=== PATIENT | male | born 2000 | race Caucasian/White ===

== ENCOUNTER 2023-04-14 09:47 | Outpatient (CLI) | payer BC, SELFPAY ==
[2023-04-14 13:22] LABS: Alanine Aminotransferase 18 U/L (6-50); Albumin Level 4.5 g/dL (3.5-5.1); Alkaline Phosphatase 130 U/L (38-126); Anion Gap 8 mmol/L (8-16); Aspartate Amino Transferase 73 U/L (17-59); Bilirubin,Total 2.7 mg/dL (0.2-1.3); Blood Urea Nitrogen 22 mg/dL (9-20); Calcium 9.1 mg/dL (8.4-10.2); Carbon Dioxide 31 mmol/L (22-30); Chloride 101 mmol/L (98-107); Cholesterol 108 mg/dL (0-200); Estimated Glomerular Filt Rate > 60; Glucose 81 mg/dL (65-110); HDL Direct 46 mg/dL; Potassium 3.8 mmol/L (3.4-5.0); Sodium 140 mmol/L (137-145); Triglycerides 40 mg/dL (<150)
[2023-04-14 13:33] LABS: LDL Cholesterol Direct 51 mg/dL
[2023-04-14 14:05] LABS: Hepatitis B Surface Antigen Negative (Negative)
[2023-04-14 14:11] LABS: HAV RESULT Negative (Negative); Hepatitis B Core IgM Result Negative (Negative)
[2023-04-14 14:23] LABS: Hepatitis C Virus Antibody Negative (Negative)
[2023-04-18 12:42] LABS: EBV Nuclear Ab Antibody <18.00 U/mL (<18.00); EBV Nuclear Ab Interpretation Negative; EBV Virus Capsid Ag IgG Ab <18.00 U/mL (<18.00); EBV Virus Capsid Ag IgM Ab <36.00 U/mL (<36.00)
== END 2023-04-14 09:48 | disposition home or self-care (01) ==
LOC: ANHGOSHLAB 09:49
PROVIDERS: PCP Nurse Practitioner Family; Visit Provider Nurse Practitioner Family
DX: R74.8 Abnormal levels of other serum enzymes (principal); R53.83 Other fatigue
CPT/HCPCS: 36415; 80053; 80061; 80074; 84443; 86664; 86665

== ENCOUNTER → 2023-05-06 09:59 | Outpatient (CLI) | payer BC, SELFPAY ==
--- NOTE | ~2023-05-06 | US_ITS ---
Abdominal Sonogram: Real-time sonographic imaging of the abdomen was performed. Clinical History: Abnormal serum enzyme levels Findings: The liver appears normal with no evidence of mass lesion or bile duct dilatation. Main por rodrick vein demonstrates normal direction of flow. The spleen is normal in size without evidence of foca l lesion. The gallbladder is well distended, and appears normal with no evidence of gallstone or wal l thickening. The common bile duct measures 3 mm. The visualized pancreas, aorta, and IVC are unrema rkable. The right kidney measures 9.6 cm in length and the left kidney measures 11.3 cm. There is n o hydronephrosis or renal calculus. Impression: Unremarkable abdominal ultrasound. Reviewed, dictated and finalized at location M. [employer] Impression: Unremarkable abdominal ultrasound.
== END ==
PROVIDERS: PCP Nurse Practitioner Family; Visit Provider Nurse Practitioner Family
DX: R74.8 Abnormal levels of other serum enzymes (principal)
CPT/HCPCS: 76700

== ENCOUNTER 2023-08-11 10:17 | Outpatient (CLI) | payer BC, SELFPAY ==
--- NOTE | ~2023-08-11 | MR_ITS ---
MRI of the right forearm Clinical history: Pain TECHNIQUE: Axial T1-weighted, T2 fat-sat, STIR images, coronal T1-weighted and STIR images, and sagit rodrick T1-weighted and STIR images were performed. FINDINGS: There is extensive amorphous marrow edema involving the proximal half of the ulnar shaft, m ore mild involvement in the distal ulna. T1 marrow signal is preserved. Bone marrow signals of the ra dius, visualized distal humerus, and visualized carpal bones are unremarkable. No fracture evident. N o roz periosteal reaction seen, however there is mild soft tissue edema about the anterior aspect o f the proximal third of the ulnar shaft, best seen on axial STIR images. Visualized musculature and soft tissues otherwise are unremarkable. No other soft tissue mass or tunde a seen. No fluid collection evident. Visualized tendons appear intact. No joint effusion evident. IMPRESSION: Extensive amorphous, nonspecific marrow edema of the ulna, with preserved T1 signal, and mild surroun ding soft tissue edema along the anterior margin of the proximal third of the ulnar shaft. Findings a re compatible nonspecific marrow edema, with diagnostic considerations which could include hyperperfu edward (for example in the setting of sickle cell disease), posttraumatic bone contusion, or other reac tive stress response or marrow edema. Preserved T1 marrow signal mitigates against infection or neopl astic disease. Clinical correlation is required. Reviewed, dictated and finalized at location M. IMPRESSION: Extensive amorphous, nonspecific marrow edema of the ulna, with preserved T1 si gnal, and mild surrounding soft tissue edema along the anterior margin of the p roximal third of the ulnar shaft. Findings are compatible nonspecific marrow ed wilmer, with diagnostic considerations which could include hyperperfusion (for exa mple in the setting of sickle cell disease), posttraumatic bone contusion, or o ther reactive stress response or marrow edema. Preserved T1 marrow signal mitig ates against infection or neoplastic disease. Clinical correlation is required.
== END 2023-08-11 10:18 ==
LOC: GOSHIMG 10:17
PROVIDERS: PCP Nurse Practitioner Family; Visit Provider Orthopaedic Surgery Hand Surgery
DX: M89.3 Hypertrophy of bone (principal)
CPT/HCPCS: 73218